=== PATIENT | female | born 1965 | race Caucasian/White ===

== ENCOUNTER → 2017-08-14 08:15 | Outpatient (CLI) | payer BC, SELFPAY ==
--- NOTE | 2017-08-14 08:18 | MM_ITS ---
MM Dig screening mamm BI w/CAD CAD Screening COMPARISON: Digital mammograms with CAD 07/22/2016 and 04/03/2015 INDICATION: There is a history of breast cancer patient's paternal aunt and paternal cousin. TECHNIQUE: Standard CC and MLO images were obtained. R2 CAD reviewed. FINDINGS: Prominent diffuse fibroglandular densities are seen throughout both breast, primarily upper outer quadrants. There is a mole marker left breast. There are few scattered benign-appearing calcifications left breast. There is no suspicious lesion and there are no suspicious microcalcifications. IMPRESSION: Moderate heterogenic) compatible with no suspicious lesion seen BI-RADS Category: 2 Benign Finding(s) RECOMMENDED FOLLOW-UP: 1YR - 1 YEAR FOLLOW-UP (A letter has been sent to the patient regarding results of the study.)
== END ==
PROVIDERS: Family Provider Family Medicine; PCP Family Medicine; Visit Provider Family Medicine
DX: Z12.31 Encounter for screening mammogram for malignant neoplasm of breast (principal)
CPT/HCPCS: 77067

== ENCOUNTER → 2018-09-24 08:14 | Outpatient (CLI) | payer BC, SELFPAY | PROVIDERS: PCP Physician Assistant; Visit Provider Physician Assistant | DX: Z12.31 Encounter for screening mammogram for malignant neoplasm of breast (principal) | CPT/HCPCS: 77067 ==

== ENCOUNTER → 2018-10-30 14:21 | Outpatient (CLI) | payer BC, SELFPAY ==
--- NOTE | 2018-10-30 | US_ITS ---
PROCEDURE: US BREAST LT COMPLETE CLINICAL INDICATION: Evaluation of possible asymmetric density on mammogram COMPARISON: BR US BREAST-RT COMPLETE W/AXILLA from 11/07/2015 FINDINGS: Is a small benign-appearing cystic lesion 12 o'clock position measuring 0.4 x 0.4 x 0.4 cm. This shows slight acoustic enhancement. In addition there is another hypoechoic cystic lesion at the 6 o'clock position near the nipple measuring 0.9 by 0.4 x 1.2 cm. Scanning of the area of the asymmetric density on mammogram shows no ultrasound correlation. IMPRESSION: Probable asymmetric glandular elements on the mammogram with ultrasound correlation however recommend the patient have a six-month follow-up ultrasound at the time of the six-month follow-up mammogram for continuing evaluation. Dictated by: Dr. Shaheed Gonzalez MD 11/06/2018 09:[address] Shaheed Gonzalez MD in [place] 11/06/2018 09:41
--- NOTE | 2018-10-30 14:25 | MM_ITS ---
PROCEDURE: MM DIG MAMM DX UNILAT LT CAD CLINICAL INDICATION: ABNORMAL MAMM COMPARISON: DMDXUAVR DIG MAMM-DX UNI ADD VIEWS-RT from 04/17/2015 DMDXUAVR DIG MAMM-DX UNI ADD VIEWS-RT from 11/07/2015 [facility] DIG MAMM-SCREEN [facility] W/CAD from 07/22/2016 [facility] MM Dig screening mamm BI w/CAD from 08/14/2017 DIG MAMM-SCREEN MILDRED from 09/24/2018 US BREAST LT COMPLETE from 10/30/2018 TECHNIQUE: Spot-compression MLO and CC views were obtained. FINDINGS: The asymmetric densities again seen lower inner quadrant left breast. Again it has somewhat irregular borders. However ultrasound performed the same date showed no ultrasound correlation, only 2 small benign-appearing cystic lesions. I believe short-term 6 month interval follow-up should be considered. IMPRESSION: Probable asymmetric glandular tissue BI-RAD Category: 3 Probably Benign Finding Short Term Follow-up FOLLOW-UP: 6M 6Month Follow-up (A letter has been sent to the patient regarding results of the study.) Dictated by: Dr. Shaheed Gonzalez MD 11/06/2018 09:[address] Shaheed Gonzalez MD in [place] 11/06/2018 09:38
== END ==
PROVIDERS: PCP Physician Assistant; Visit Provider Physician Assistant
DX: R92.8 Other abnormal and inconclusive findings on diagnostic imaging of breast (principal)
CPT/HCPCS: 76641; 77065

== ENCOUNTER → 2019-07-09 14:18 | Outpatient (CLI) | payer BC, SELFPAY ==
--- NOTE | 2019-07-09 14:23 | US_ITS ---
PROCEDURE: MM DIG MAMM DX UNILAT LT CAD Digital Breast Tomosynthesis Included CLINICAL INDICATION: 6 MONTH F/U Follow-up abnormal mammogram COMPARISON: [facility] MM Dig screening mamm BI w/CAD from 08/14/2017 DIG MAMM-SCREEN MILDRED from 09/24/2018 US BREAST LT COMPLETE from 10/30/2018 MM DIG MAMM DX UNILAT LT CAD from 10/30/2018 US BREAST LT COMPLETE from 07/09/2019 TECHNIQUE: Standard CC and MLO images and 3D Tomosynthesis was obtained. R2 CAD reviewed. FINDINGS: Average fibroglandular tissue. Asymmetry noted in the inferior aspect of the left breast is somewhat less apparent. A well-circumscribed 5-6 mm nodule in the retroareolar region laterally. Scattered benign-appearing calcifications are noted. No malignant appearing mass or malignant-appearing microcalcification. Left breast ultrasound: 4 mm cyst present 12 o'clock. 5 mm cyst is present at 2 o'clock. 9 mm 10 x 3 mm cyst at 6 o'clock. IMPRESSION: Benign findings. No convincing evidence of malignancy. Recommend resume screening mammogram September 2019 BI-RAD Category: 2 Benign Finding(s) FOLLOW-UP: 6M 6Month Follow-up (A letter has been sent to the patient regarding results of the study.) Dictated by: Amado Nelson MD 07/19/2019 09:46 Electronically signed by Amado Nelson MD in [place] 07/19/2019 09:46
== END ==
PROVIDERS: PCP Physician Assistant; Visit Provider Physician Assistant
DX: R92.8 Other abnormal and inconclusive findings on diagnostic imaging of breast (principal)
CPT/HCPCS: 76641; 77061; 77065; G0279

== ENCOUNTER → 2020-07-21 07:49 | Outpatient (CLI) | payer BC, SELFPAY ==
--- NOTE | 2020-07-21 07:53 | MM_ITS ---
PROCEDURE INFORMATION: Exam: MG Screening 3D Mammography Exam date and time: 07/21/2020 7:53 AM Age: 55 years old Clinical indication: Encounter for screening mammogram for malignant neoplasm of breast TECHNIQUE: Imaging protocol: Screening tomosynthesis and 2D mammography including computer-aided detection (CAD) when performed. COMPARISON: 1. MG MM DIG MAMM DX UNILAT LT CAD 07/09/2019 2:26 PM 2. MG MM DIG MAMM DX UNILAT LT CAD 10/30/2018 2:53 PM FINDINGS: MAMMOGRAPHY: Breast composition: The breast tissue is heterogeneously dense, which may obscure small masses. Mass: None. Architectural distortion: None. Calcifications: No suspicious calcifications. Asymmetric density: None. Skin thickening: None. Axillary adenopathy: None. IMPRESSION: No mammographic evidence of malignancy. Annual screening is recommended unless otherwise clinically indicated. ASSESSMENT: BI-RADS Category 1: Negative
== END ==
PROVIDERS: PCP Physician Assistant; Visit Provider Physician Assistant
DX: Z12.31 Encounter for screening mammogram for malignant neoplasm of breast (principal)
CPT/HCPCS: 77063; 77067

== ENCOUNTER → 2021-01-19 09:19 | Outpatient (CLI) | payer BC, SELFPAY ==
--- NOTE | 2021-01-19 09:22 | XR_ITS ---
PROCEDURE: XR DEXA AXIAL SKELETON CLINICAL HISTORY: POST MENOPAUSAL COMPARISON: No exams were available for comparison FINDINGS: The right hip BMD is 0.818 with a T-score of -0.3. The left hip BMD is 0.842 with a T-score of -0.8. The lumbar spine BMD is 1.142 with a T-score of 0.9. IMPRESSION: This patient is considered normal according to the World Health Organization criteria. Fracture risk is low. Based on these results a follow-up exam is recommended in 2 year. Dictated by: Amado Nelson MD 01/19/2021 13:22 Amado Nelson MD in [place] 01/19/2021 13:22
== END ==
PROVIDERS: PCP Physician Assistant; Visit Provider Physician Assistant
DX: Z78.0 Asymptomatic menopausal state (principal); Z13.820 Encounter for screening for osteoporosis
CPT/HCPCS: 77080

== ENCOUNTER → 2021-02-12 09:18 | Outpatient (CLI) | payer BC, SELFPAY | PROVIDERS: Visit Provider Surgery | DX: Z01.812 Encounter for preprocedural laboratory examination (principal); Z11.52 Encounter for screening for COVID-19; Z12.11 Encounter for screening for malignant neoplasm of colon | CPT/HCPCS: C9803; U0003; U0005 ==

== ENCOUNTER 2021-02-14 10:29 | Day surgery (SDC) | payer BC, SELFPAY ==
[2021-02-06 14:33] VITALS: BMI 37.8
[2021-02-14] VITALS (7 sets, daily range): BP systolic 87–126; BP diastolic 50–68; PULSE 76–86; RESP 16–18; TEMP 36.1–36.7; O2SAT 92–96
--- NOTE | 2021-02-14 10:30 | HMH.ANESCL ---
[facility] Anesthesia Checklist - Structural Data Admitted From: Home Planned Operative Procedure/s: colonoscopy Consent for Planned Operative Procedure(s) Verified: Yes - Airway Assessment C-Spine Mobility Assessed: Yes TMJ Mobility Assessed: Yes Dentition: Good Dentition - Neurological Assessment Level of Consciousness: Awake, Alert, Appropriate - Anesthesia Plan Anesthesia Risk discussed: Yes Anesthesia Plan: Verified ASA Class: III Anesthesia Type: MAC [facility] History I have reviewed the patient's past medical history: Yes Medical History: Reports:: Diabetes Mellitus Type 2 Denies:: Cancer, Diabetes Mellitus Type 1, Internal Pacemaker, MRSA *Have you ever received a pneumonia vaccine?: No *Have you received a flu vaccine this season?: Yes Anesthesia experience/problems:: none Other Surgeries: No: Pacemaker Amputation: No Fractures: No - *Social History Last grade of school completed: Advanced degree Smoking Status: Never smoker Alcohol Intake: never Substance Use Type: denies use *Occupational Status:: employed Housing: house Household Members: spouse *Travel in the last 8 weeks: None Family Hx:: Cancer, Stroke
--- NOTE | 2021-02-14 11:57 | P.PCN_ITS ---
- Procedure: Date: 02/14/21 Patient Date of :: 1965 Procedure Performed:: Colonoscopy with polypectomy using snare and biopsy forceps Indications:: Patient is a 55-year-old female referred by Maya Alvarez for colonoscopy for history of polyps. She had undergone colonoscopy in [address] Moore and had multiple small polyps in the ascending and sigmoid colon with a 9 mm polyp in the sigmoid. She has a family history of colon cancer stating that her father of colon cancer in his 70s. Dr. Moore had recommended 5-year follow-up colonoscopy. Performing Provider:: Geoff Cannon MD Referring Provider:: Maya Alvarez Sedation:: MAC sedation Procedure:: Consent was obtained patient was taken to endoscopy procedure room. She was pos itioned lateral decubitus position. Adequate intravenous sedation was achieved with anesthesia titration of propofol. Variable stiffness Olympus colonoscope was inserted via the anus. Advanced to the cecum without appreciable difficulty. Ileocecal valve and appendiceal orifice were clearly identified. Colonoscope was advanced a short distance into the ileocecal valve briefly. Colonoscope was slowly withdrawn through the colon with careful surveillance. She did have some diverticulosis. There was a diminutive polyp at the rectosigmoid region removed with cold snare. There were a couple of hyperplastic polyps within the rectum removed with biopsy forceps. Retroflexion revealed no evidence of any pathologic internal hemorrhoids. Colonoscope was withdrawn. Findings:: Diverticulosis Rectosigmoid polyp moved with cold snare Probable hyperplastic rectal polyp x2 Recommendations:: Likely repeat colonoscopy 5 years Complications:: None immediately apparent Estimated blood obtained (mL): 1
[2021-11-15 10:55] LABS: POC Glucose,Bedside 142 (70-110)
== END 2021-02-14 12:48 | disposition home or self-care (01) ==
LOC: OUTP 10:30
PROVIDERS: PCP Physician Assistant; Visit Provider Surgery
PROC: 0DJD8ZZ Inspection of Lower Intestinal Tract, Via Natural or Artificial Opening Endoscopic (ICD-10-PCS; CPT 45380; principal; 2021-02-14 11:30)
DX: Z12.11 Encounter for screening for malignant neoplasm of colon (principal); K63.5 Polyp of colon; Z86.010 Personal history of colon polyps; K57.30 Diverticulosis of large intestine without perforation or abscess without bleeding; K62.1 Rectal polyp; Z80.0 Family history of malignant neoplasm of digestive organs; I10 Essential (primary) hypertension; E11.9 Type 2 diabetes mellitus without complications; Z88.0 Allergy status to penicillin; Z88.5 Allergy status to narcotic agent; Z79.84 Long term (current) use of oral hypoglycemic drugs; Z79.899 Other long term (current) drug therapy
CPT/HCPCS: 45380; 45385; 82962

== ENCOUNTER → 2021-09-06 08:02 | Outpatient (CLI) | payer BC, SELFPAY ==
--- NOTE | 2021-09-06 08:04 | MM_ITS ---
PROCEDURE INFORMATION: Exam: MG Bilateral Screening 3D Mammography Exam date and time: 09/06/2021 7:59 AM Age: 56 years old Clinical indication: Screening mammogram TECHNIQUE: Imaging protocol: Bilateral Screening tomosynthesis and 2D mammography including computer-aided detection (CAD) when performed. COMPARISON: 1. MG MM DIG SCREENING MAMM BI W/CAD 07/21/2020 8:05 AM 2. MG MM DIG MAMM DX UNILAT LT CAD 07/09/2019 2:26 PM 3. MG MM DIG MAMM DX UNILAT LT CAD 10/30/2018 2:53 PM 4. MG DIG MAMM-SCREEN MILDRED 09/24/2018 8:39 AM FINDINGS: MAMMOGRAPHY: Breast composition: There are scattered areas of fibroglandular density. Mass: None. Architectural distortion: No new or suspicious architectural distortion. Calcifications: No new or suspicious calcifications are present Asymmetric density: No new or suspicious asymmetric density is present Skin thickening: None. Axillary adenopathy: None. IMPRESSION: No mammographic evidence of malignancy. Recommend annual screening mammography unless otherwise clinically indicated. ASSESSMENT: BI-RADS category 1: Negative
== END ==
PROVIDERS: PCP Physician Assistant; Visit Provider Physician Assistant
DX: Z12.31 Encounter for screening mammogram for malignant neoplasm of breast (principal)
CPT/HCPCS: 77063; 77067

== ENCOUNTER 2022-05-30 09:00 | Outpatient (RCR) | payer BC, SELFPAY | END 2022-06-24 10:20 | disposition home or self-care (01) | LOC: PT 09:00 | PROVIDERS: PCP Physician Assistant; Visit Provider Orthopaedic Surgery | DX: M25.562 Pain in left knee (principal); Z96.652 Presence of left artificial knee joint | CPT/HCPCS: 97010; 97014; 97110; 97116; 97140; 97163; 97530; G0283 ==

== ENCOUNTER 2022-08-06 11:00 | Outpatient (RCR) | payer BC, SELFPAY | END 2022-08-29 15:55 | disposition home or self-care (01) | LOC: PT 11:00 | PROVIDERS: PCP Physician Assistant; Visit Provider Orthopaedic Surgery | DX: M25.561 Pain in right knee (principal); Z96.651 Presence of right artificial knee joint | CPT/HCPCS: 97010; 97014; 97110; 97140; 97163; 97164; 97530; G0283 ==

== ENCOUNTER → 2022-09-12 08:01 | Outpatient (CLI) | payer BC, SELFPAY ==
--- NOTE | 2022-09-12 08:05 | MM_ITS ---
PROCEDURE INFORMATION: Exam: MG Bilateral Screening 3D Mammography Exam date and time: 09/12/2022 7:56 AM Age: 57 years old Clinical indication: Screening examination; Family history of breast cancer in aunt and other: Cousin TECHNIQUE: Imaging protocol: Bilateral Screening tomosynthesis and 2D mammography including computer-aided detection (CAD) when performed. COMPARISON: 1. MG MM DIG SCREENING MAMM BI W/CAD 09/06/2021 7:59 AM 2. MG MM DIG SCREENING MAMM BI W/CAD 07/21/2020 8:05 AM 3. MG MM DIG MAMM DX UNILAT LT CAD 07/09/2019 2:26 PM 4. MG MM DIG MAMM DX UNILAT LT CAD 10/30/2018 2:53 PM FINDINGS: MAMMOGRAPHY: Breast composition: The breasts are heterogeneously dense, which may obscure small masses. Mass: None. Architectural distortion: None. Calcifications: No suspicious calcifications. Asymmetric density: Questionable 0.8 cm focal asymmetry in the left inner upper quadrant anterior 3rd. Skin thickening: None. Axillary adenopathy: None. IMPRESSION: Patient will be recalled for left diagnostic mammography with spot compression CC and MLO and left sonography for further evaluation of questionable left breast asymmetry. ASSESSMENT: BI-RADS Category 0: Incomplete- Need Additional Imaging Evaluation and/or Prior Mammograms for Comparison
== END ==
PROVIDERS: PCP Physician Assistant; Visit Provider Physician Assistant
DX: Z12.31 Encounter for screening mammogram for malignant neoplasm of breast (principal)
CPT/HCPCS: 77063; 77067

== ENCOUNTER → 2022-10-03 12:46 | Outpatient (CLI) | payer BC, SELFPAY ==
--- NOTE | 2022-10-03 12:49 | MM_ITS ---
PROCEDURE INFORMATION: Exam: US Left Breast, Complete MG Left Diagnostic Breast Tomosynthesis Exam date and time: 10/03/2022 12:51 PM Age: 57 years old Clinical indication: Patient recalled on the basis of a screening mammogram for further evaluation; Left breast; asymmetry TECHNIQUE: Imaging protocol: Complete ultrasound of all four quadrants of the left breast and the retroareolar regions, including ultrasound of the axilla when performed. Left Diagnostic tomosynthesis and 2D mammography including computer-aided detection (CAD) when performed. Unilateral or bilateral exam. COMPARISON: 1. MG MM DIG SCREENING MAMM BI W/CAD 09/12/2022 7:56 AM 2. MG MM DIG SCREENING MAMM BI W/CAD 09/06/2021 7:59 AM FINDINGS: MAMMOGRAPHY: Digital diagnostic spot compression views of the anterior third of the left upper inner quadrant demonstrates a persistent 0.8 cm focal asymmetry only well seen in the craniocaudal projection ULTRASOUND: Sonographic images of the left breast including the retroareolar region, all 4 quadrants and the axilla do not demonstrate any solid masses. Minimal subcentimeter cystic change in the left 12-2 o'clock axis. No focal findings in the upper inner quadrant. No architectural distortion or acoustical shadowing. No skin thickening or axillary adenopathy. IMPRESSION: Slight persistent subcentimeter asymmetry only well seen in the craniocaudal projection medially. A six-month follow-up diagnostic left mammogram is recommended to ensure stability of the pattern identified ASSESSMENT: BI-RADS Category 3: Probably benign
== END ==
PROVIDERS: PCP Physician Assistant; Visit Provider Physician Assistant
DX: R92.8 Other abnormal and inconclusive findings on diagnostic imaging of breast (principal)
CPT/HCPCS: 76641; 77061; 77065; G0279

== ENCOUNTER 2023-04-11 12:53 | Outpatient (CLI) | payer BC, SELFPAY ==
--- NOTE | 2023-04-11 13:30 | MM_ITS ---
PROCEDURE INFORMATION: Exam: MG Left Diagnostic Breast Tomosynthesis Exam date and time: 04/11/2023 1:18 PM Age: 58 years old Clinical indication: Six-month follow-up for questionable 0.8 cm focal asymmetry in the left inner upper quadrant initiated 09/12/2022. TECHNIQUE: Imaging protocol: Left Diagnostic tomosynthesis and 2D mammography including computer-aided detection (CAD) when performed. Unilateral or bilateral exam. Spot compression added. COMPARISON: 1. MG MM DIG MAMM DX UNILAT LT CAD 10/03/2022 12:51 PM 2. MG MM DIG SCREENING MAMM BI W/CAD 09/12/2022 7:56 AM 3. MG MM DIG SCREENING MAMM BI W/CAD 09/06/2021 7:59 AM 4. MG MM DIG SCREENING MAMM BI W/CAD 07/21/2020 8:05 AM FINDINGS: MAMMOGRAPHY: Breast composition: The breast is heterogeneously dense, which may obscure small masses. Mass: None. Architectural distortion: None. Calcifications: No suspicious calcifications. Asymmetric density: Stable 0.8 cm focal asymmetry in the upper inner quadrant anterior 3rd since 09/12/2022. Skin thickening: None. Axillary adenopathy: None. IMPRESSION: Stable mammographic asymmetry since 09/12/2022, suggest continued six-month follow-up diagnostic mammography when the patient returns for her screening mammogram in August 2023, unless otherwise clinically indicated. ASSESSMENT: BI-RADS Category 3: Probably benign
== END 2023-04-11 23:59 ==
LOC: RAD 12:54
PROVIDERS: PCP Physician Assistant; Visit Provider Physician Assistant
DX: Z12.31 Encounter for screening mammogram for malignant neoplasm of breast (principal); R92.8 Other abnormal and inconclusive findings on diagnostic imaging of breast
CPT/HCPCS: 77061; 77065; G0279

== ENCOUNTER 2023-11-19 10:20 | Outpatient (CLI) | payer BC, SELFPAY ==
--- NOTE | 2023-11-19 10:24 | MM_ITS ---
PROCEDURE INFORMATION: Exam: MG Bilateral Diagnostic Breast Tomosynthesis Exam date and time: 11/19/2023 10:18 AM Age: 58 years old Clinical indication: Follow-up from prior for probably benign left breast asymmetry. TECHNIQUE: Imaging protocol: Bilateral Diagnostic tomosynthesis and 2D mammography including computer-aided detection (CAD) when performed. Unilateral or bilateral exam. COMPARISON: 1. MG MM DIG SCREENING MAMM BI W/CAD 09/12/2022 7:56 AM 2. MG MM DIG SCREENING MAMM BI W/CAD 09/06/2021 7:59 AM 3. MG MM DIG MAMM DX UNILAT LT CAD 04/11/2023 1:18 PM 4. MG MM DIG MAMM DX UNILAT LT CAD 10/03/2022 12:51 PM FINDINGS: MAMMOGRAPHY: Breast composition: The breasts are heterogeneously dense, which may obscure small masses. Breast mammogram findings: Left breast spot compression and full field bilateral tomosynthesis views were obtained. Mass: No suspicious masses. Architectural distortion: None. Calcifications: No suspicious calcifications. Asymmetric density: Stable 0.8 cm asymmetry in the medial left breast seen on CC view only, unchanged. Skin thickening: None. Axillary lymphadenopathy: None. IMPRESSION: Stable left breast asymmetry, unchanged since 09/12/2022 and probably benign. Recommend six-month follow-up left breast diagnostic mammogram to ensure stability. ASSESSMENT: BI-RADS Category 3: Probably benign.
== END 2023-11-19 23:59 | disposition home or self-care (01) ==
PROVIDERS: PCP Physician Assistant; Visit Provider Physician Assistant
DX: R92.8 Other abnormal and inconclusive findings on diagnostic imaging of breast (principal)
CPT/HCPCS: 77062; 77066; G0279

== ENCOUNTER 2023-12-18 13:05 | Outpatient (CLI) | payer BC, SELFPAY ==
[2023-12-18 14:08] LABS: Bilirubin,Total 1.2 mg/dl (0.2-1.3)
== END 2023-12-18 23:59 | disposition home or self-care (01) ==
LOC: LAB 13:06
PROVIDERS: PCP Physician Assistant; Visit Provider Family Medicine
DX: E80.6 Other disorders of bilirubin metabolism (principal)
CPT/HCPCS: 36415; 82247

== ENCOUNTER 2024-06-17 08:11 | Outpatient (CLI) | payer BC, SELFPAY ==
--- NOTE | 2024-06-17 08:14 | MM_ITS ---
PROCEDURE INFORMATION: Exam: MG Bilateral Screening 3D Mammography Exam date and time: 06/17/2024 8:48 AM Age: 59 years old Clinical indication: Screening examination TECHNIQUE: Imaging protocol: Bilateral Screening tomosynthesis and 2D mammography including computer-aided detection (CAD) when performed. COMPARISON: 1. MG MM DIG MAMM BI DX W/CAD 11/19/2023 10:18 AM 2. MG MM DIG MAMM DX UNILAT LT CAD 04/11/2023 1:18 PM FINDINGS: MAMMOGRAPHY: Breast composition: There are scattered areas of fibroglandular density. Mass: No new or suspicious masses Architectural distortion: None. Calcifications: No suspicious calcifications. Asymmetric density: None. Skin thickening: None. Axillary adenopathy: None. IMPRESSION: No mammographic evidence of malignancy. Annual screening is recommended unless otherwise clinically indicated. ASSESSMENT: BI-RADS Category 1: Negative.
--- NOTE | 2024-06-17 08:14 | XR_ITS ---
FINAL REPORT TECHNIQUE: Bone densitometry calculations of the lumbar spine and left hip were obtained. CLINICAL HISTORY: post menopausal COMPARISON: None FINDINGS: Using L1-4, the bone mineral density of the spine is 1.072 g/cm2, corresponding to T-score of 0.2. Using the left hip, the bone mineral density of the femoral neck is 0.838 g/cm2, corresponding to a T-score of -0.9. Using the right hip, the bone mineral density of the femoral neck is 0.890 g/cm?, corresponding to a T-score of -0.4. NOTE: T-score: Standard deviation compared with peak bone mass of young adult mean. *Following the recommendations of the International Society of Bone densitometry, classification of hip BMD is based on the lower of two T-scores; total hip or femoral neck. IMPRESSION: Normal bone mineral density of the lumbar spine and bilateral hips. Reviewed, Interpreted and Dictated by Mendel Bazzi MD Transcribed by Taryn Saba Authenticated and [facility]
== END 2024-06-17 23:59 | disposition home or self-care (01) ==
LOC: RAD 08:11
PROVIDERS: PCP Physician Assistant; Visit Provider Physician Assistant
DX: Z12.31 Encounter for screening mammogram for malignant neoplasm of breast (principal); Z13.820 Encounter for screening for osteoporosis
CPT/HCPCS: 77063; 77067; 77080